=== PATIENT | female | born 1965 | race Caucasian/White ===

== ENCOUNTER → 2020-10-13 | Outpatient (CLI) | payer BC ==
[~2020-10-13] MED LIST: BYSTOLIC10 MG PO; IOPAMIDOL 370 MG/ML 200 ML INFUS..BTL INJ ONE; LEVOTHYROXINE25 MCG PO; PANTOPRAZOLE SO40 MG PO; SODIUM CHLORIDE 0.9% 500ML 500 ML ONE; SODIUM CHLORIDE 0.9% 50ML 50 ML ONE
[2020-10-13 15:22] LABS: CREATININE, SERUM 1.02 mg/dL (0.57-1.11)
== END ==
LOC: CT 14:34
PROVIDERS: ATTEND Family Medicine
DX: M79.621 Pain in right upper arm (principal); R93.6 Abnormal findings on diagnostic imaging of limbs
CPT/HCPCS: 36415; 73201; 82565; 84520; 96360; J7040; Q9967